=== PATIENT | male | born 1965 | race Two or more races ===

== ENCOUNTER 2018-09-07 22:11 | Emergency (ER) | payer OTHER ==
[~2018-09-07] VITALS: Ht 175.3 cm; Wt 77.1 kg
[2018-09-07] MEDS ORDERED: PANADOL EXTRA500 MG (22:27)
[2018-09-08] MEDS ORDERED: DOLOGESIC-DF 51 EACH PO (04:02)
[2018-09-08] MEDS ORDERED: PYRIDIUM DS200 MG PO (04:02)
[2018-09-08] MEDS ORDERED: CIPRO500 MG PO (04:02)
== END 2018-09-08 04:07 | disposition home or self-care (01) ==
LOC: ER 22:11
DX: N39.0 Urinary tract infection, site not specified (principal); R50.9 Fever, unspecified